=== PATIENT | female | born 1975 | race Caucasian/White ===

== ENCOUNTER 2018-11-20 14:50 | Observation (INO) | payer OTHER ==
[2018-11-20] MEDS ORDERED: SODIUM CHLORIDE 0.9% 1,000 ML IV STA ×2 (15:13)
--- NOTE | 2018-11-20 15:15 | ED ---
Neuro HPI - General Chief Complaint: Neuro Symptoms/Deficit Stated Complaint: elevated BP Time Seen by Provider: 11/20/18 15:11 Source: patient, EMS, RN notes reviewed, old records reviewed Mode of arrival: EMS Limitations: physical limitation - History of Present Illness Is the patient presenting with stroke symptoms?: Yes Last Known Well Date: 11/19/18 -: days(s) (1) Location: speech, dysarthria, left arm, left leg History of same: No Place: outdoors (Patient presents from [place]) Quality: weak, numb, tingling Improves With: none Worsens With: none On Anticoagulants: No Context: gradual onset Associated Symptoms: confusion Treatments Prior to Arrival: none - Related Data Home Medications: Home Medications Medication Instructions Recorded Confirmed Acetaminophen Tab [Tylenol Tab] 650 mg PO Q4H PRN 11/20/18 11/20/18 Calcium/Magnesium 1000/500mg 1 - 2 tab PO TID PRN 11/20/18 11/20/18 Chlorpheniramine Maleate 4 mg PO Q4H PRN 11/20/18 11/20/18 [Chlor-Trimeton] Docusate [Colace] 100 mg PO BID PRN 11/20/18 11/20/18 Estradiol [Estrace] 1 mg PO DAILY@00 11/20/18 11/20/18 FLUoxetine HCL [PROzac] 60 mg PO DAILY@59911/20/18 11/20/18 Folic Acid 1 mg PO DAILY@59911/20/18 11/20/18 Hyoscyamine Sulfate [Levsin-Sl] 0.125 mg SL QID PRN 11/20/18 11/20/18 Ibuprofen [Motrin] 600 mg PO Q6H PRN 11/20/18 11/20/18 Levothyroxine Sodium [Synthroid] 150 mcg PO DAILY@59911/20/18 11/20/18 Loperamide [Imodium] 4 mg PO QID PRN 11/20/18 11/20/18 Mirtazapine [Remeron] 30 mg PO HS 11/20/18 11/20/18 Multivitamins, Thera [Multivitamin 1 tab PO DAILY@0600 11/20/18 11/20/18 (formulary)] Ondansetron HCl [Zofran] 8 mg PO Q6H PRN 11/20/18 11/20/18 Ondansetron [Zofran] 4 mg IM Q6H PRN 11/20/18 11/20/18 Thiamine [Vitamin B-1] 100 mg PO DAILY@0600 11/20/18 11/20/18 Tigan 200mg 200 mg IM Q6H PRN 11/20/18 11/20/18 Trimethobenzamide HCl [Tigan] 300 mg PO Q6H PRN 11/20/18 11/20/18 busPIRone HCl [Buspar] 10 mg PO TID PRN 11/20/18 11/20/18 Allergies/Adverse Reactions: Allergies Allergy/AdvReac Type Severity Reaction Status Date / Time bee pollen Allergy Anaphylaxis Verified 11/20/18 15:24 Sulfa (Sulfonamide Allergy Rash/Hives Verified 11/20/18 15:24 Antibiotics) Review of Systems ROS Statement: Those systems with pertinent positive or pertinent negative responses have been documented in the HPI. ROS Other: All systems not noted in ROS Statement are negative. General Exam - General Exam Comments Initial Comments: NIH of 4 Limitations: physical limitation General appearance: alert, in no apparent distress Head exam: Present: atraumatic, normocephalic, normal inspection Eye exam: Present: normal appearance, PERRL, EOMI. Absent: scleral icterus, conjunctival injection, periorbital swelling ENT exam: Present: normal exam, mucous membranes moist Neck exam: Present: normal inspection. Absent: tenderness, meningismus, ly mphadenopathy Respiratory exam: Present: normal lung sounds bilaterally. Absent: respiratory distress, wheezes, rales, rhonchi, stridor Cardiovascular Exam: Present: regular rate, normal rhythm, normal heart sounds. Absent: systolic murmur, diastolic murmur, rubs, gallop, clicks GI/Abdominal exam: Present: soft, normal bowel sounds. Absent: distended, tenderness, guarding, rebound, rigid Extremities exam: Present: normal inspection, full ROM, normal capillary refill. Absent: tenderness, pedal edema, joint swelling, calf tenderness Back exam: Present: normal inspection Neurological exam: Present: alert, oriented X3, CN II-XII intact Psychiatric exam: Present: normal affect, normal mood Skin exam: Present: warm, dry, intact, normal color. Absent: rash Stroke MDM - Lab Data Result diagrams: 11/20/18 15:22 11/20/18 15:22 Lab Results 11/20/18 11/20/18 11/20/18 Range/Units 15: 15: 15:22 WBC 6.4 (3.8-10.6) k/uL RBC 4.19 (3.80-5.40) m/uL Hgb 11.9 (11.4-16.0) gm/dL Hct 35.7 (34.0-46.0) % MCV 85.2 (80.0-100.0) fL MCH 28.4 (25.0-35.0) pg MCHC 33.3 (31.0-37.0) g/dL RDW 13.5 (11.5-15.5) % Plt Count 255 (150-450) k/uL Neutrophils % 61 % Lymphocytes % 30 % Monocytes % 5 % Eosinophils % 1 % Basophils % 1 % Neutrophils # 3.9 (1.3-7.7) k/uL Lymphocytes # 1.9 (1.0-4.8) k/uL Monocytes # 0.3 (0-1.0) k/uL Eosinophils # 0.0 (0-0.7) k/uL Basophils # 0.0 (0-0.2) k/uL PT 9.5 (9.0-12.0) sec INR 0.9 (<1.2) APTT 25.7 (22.0-30.0) sec Sodium 140 (137-145) mmol/L Potassium 4.0 (3.5-5.1) mmol/L Chloride 108 H (98-107) mmol/L Carbon Dioxide 23 (22-30) mmol/L Anion Gap 9 mmol/L BUN 9 (7-17) mg/dL Creatinine 0.70 (0.52-1.04) mg/dL Est GFR (CKD-EPI)AfAm >90 (>60 ml/min/1.73 sqM) Est GFR (CKD-EPI)NonAf >90 (>60 ml/min/1.73 sqM) Glucose 87 (74-99) mg/dL Calcium 9.5 (8.4-10.2) mg/dL Total Bilirubin 0.2 (0.2-1.3) mg/dL AST 21 (14-36) U/L ALT 18 (9-52) U/L Alkaline Phosphatase 91 (38-126) U/L Troponin I (0.000-0.034) ng/mL Total Protein 6.9 (6.3-8.2) g/dL Albumin 4.3 (3.5-5.0) g/dL 11/20/18 Range/Units 15:22 WBC (3.8-10.6) k/uL RBC (3.80-5.40) m/uL Hgb (11.4-16.0) gm/dL Hct (34.0-46.0) % MCV (80.0-100.0) fL MCH (25.0-35.0) pg MCHC (31.0-37.0) g/dL RDW (11.5-15.5) % Plt Count (150-450) k/uL Neutrophils % % Lymphocytes % % Monocytes % % Eosinophils % % Basophils % % Neutrophils # (1.3-7.7) k/uL Lymphocytes # (1.0-4.8) k/uL Monocytes # (0-1.0) k/uL Eosinophils # (0-0.7) k/uL Basophils # (0-0.2) k/uL PT (9.0-12.0) sec INR (<1.2) APTT (22.0-30.0) sec Sodium (137-145) mmol/L Potassium (3.5-5.1) mmol/L Chloride (98-107) mmol/L Carbon Dioxide (22-30) mmol/L Anion Gap mmol/L BUN (7-17) mg/dL Creatinine (0.52-1.04) mg/dL Est GFR (CKD-EPI)AfAm (>60 ml/min/1.73 sqM) Est GFR (CKD-EPI)NonAf (>60 ml/min/1.73 sqM) Glucose (74-99) mg/dL Calcium (8.4-10.2) mg/dL Total Bilirubin (0.2-1.3) mg/dL AST (14-36) U/L ALT (9-52) U/L Alkaline Phosphatase (38-126) U/L Troponin I <0.012 (0.000-0.034) ng/mL Total Protein (6.3-8.2) g/dL Albumin (3.5-5.0) g/dL - NIH Stroke Scale 1a. Level of Consciousness: (0) alert 1b. LOC Questions: (1) answers 1 question correctly 1c. LOC Commands: (0) performs tasks correctly 2. Best Gaze: (0) normal 5a. Motor Arm Left: (0) no drift 5b. Motor Arm Right: (1) drift 6a. Motor Leg Left: (0) no drift 6b. Motor Leg Right: (1) drift 7. Limb Ataxia: (1) present 1 limb 8. Sensory: (0) normal 9. Best Language: (1) mild/moderate aphasia 10. Dysarthria: (1) mild/moderate dysarthria 11. Extinction/Inattention: (0) no abnormality - Thrombolytic Inclusion/Exclusion Thrombolytic Exclusion Criteria: Symptom Onset > 3 Hours - Medical Decision Making 43 female the ER for evaluation patient resents today for evaluation of neurological complaints. Left-sided weakness expressive aphasia. Patient has CVA not TPA candidate secondary to onset of symptoms greater than one day will admit for neurology evaluation - Radiology Data Radiology results: report reviewed (CT brain negative for acute disease), image reviewed Past Medical History Additional Past Medical History / Comment(s): kidney stones History of Any Multi-Drug Resistant Organisms: None Reported Past Surgical History: Appendectomy, Cholecystectomy, Hysterectomy Additional Past Surgical History / Comment(s): lithotripsy, uretal stents Past Psychological History: ADD/ADHD, Anxiety, Depression, PTSD Smoking Status: Current every day smoker Past Alcohol Use History: Abuse Past Drug Use History: Cocaine, Marijuana Course Vital Signs 11/20/18 15:06 Temperature 98.8 F Pulse Rate 80 Respiratory 18 Rate Blood Pressure 125/81 O2 Sat by Pulse 100 Oximetry - Reevaluation(s) Reevaluation #1: 11/20/18 17:05 Medical records reviewed Reevaluation #2: 11/20/18 17:05 17 female secondary to onset of symptoms greater than one day Reevaluation #3: 11/20/18 17:05 Still with current symptoms Disposition Clinical Impression: Transient cerebral ischemia, Cerebrovascular accident Disposition: ADMITTED IP TO THIS [facility] Condition: Fair Is patient prescribed a controlled substance at d/c from ED?: No Referrals: Nonstaff,Physician [Primary Care Provider] - 1-2 days
[2018-11-20 16:10] LABS: Basophils % (A) 1 %; Eosinophils % (A) 1 %; HCT 35.7 % (34.0-46.0); HGB 11.9 gm/dL (11.4-16.0); Lymphocytes # (A) 1.9 k/uL (1.0-4.8); Lymphocytes % (A) 30 %; MCH 28.4 pg (25.0-35.0); MCHC 33.3 g/dL (31.0-37.0); MCV 85.2 fL (80.0-100.0); Mean Platelet Volume 7.9; Monocytes # (A) 0.3 k/uL (0-1.0); Monocytes % (A) 5 %; Neutrophils # (A) 3.9 k/uL (1.3-7.7); Neutrophils % (A) 61 %; Platelet Count 255 k/uL (150-450); RBC 4.19 m/uL (3.80-5.40); RDW 13.5 % (11.5-15.5); WBC 6.4 k/uL (3.8-10.6)
[2018-11-20 16:14] LABS: ALT 18 U/L (9-52); AST 21 U/L (14-36); African American GFR (CKD) >90 (>60 ml/min/1.73 sqM); Albumin 4.3 g/dL (3.5-5.0); Alkaline Phosphatase 91 U/L (38-126); Anion Gap 9 mmol/L; Blood Urea Nitrogen 9 mg/dL (7-17); Calcium 9.5 mg/dL (8.4-10.2); Carbon Dioxide 23 mmol/L (22-30); Chloride 108 mmol/L (98-107); Glucose 87 mg/dL (74-99); Sodium 140 mmol/L (137-145); Total Bilirubin 0.2 mg/dL (0.2-1.3); Total Protein 6.9 g/dL (6.3-8.2)
[2018-11-20 16:15] LABS: INR 0.9 (<1.2); Partial Thromboplastin Time 25.7 sec (22.0-30.0); Prothrombin Time 9.5 sec (9.0-12.0)
--- NOTE | 2018-11-20 16:57 | CT ---
EXAMINATION TYPE: CT brain wo con for TPA DATE OF EXAM: 11/20/2018 COMPARISON: None. HISTORY: headache CT DLP: 1032 mGycm Automated exposure control for dose reduction was used. FINDINGS: There is no acute intracranial hemorrhage, mass effect, or midline shift identified. The ventricles and sulci are within normal limits in size. [place]-white matter differentiation is maintained. The glob es are intact and the visualized sinuses are clear. IMPRESSION: No acute intracranial hemorrhage or midline shift is seen.
[2018-11-20] MEDS ORDERED: IBUPROFEN 600 MG TAB PO STA (17:04)
[2018-11-20] MEDS ORDERED: ASPIRIN 325 MG TAB PO STA (17:06)
--- NOTE | 2018-11-20 17:14 | CT ---
EXAMINATION TYPE: CT angio head neck DATE OF EXAM: 11/20/2018 HISTORY: headache, tremors. Code stroke. COMPARISON: NONE CT DLP: 296 mGycm. Automated Exposure Control for Dose Reduction was Utilized. TECHNIQUE: CTA scan of the head and neck are performed with IV Contrast, patient injected with 50 mL of Isovue 370, axial images are obtained, coronal and sagittal reformatted images are reviewed. Thre e-D reconstructed images are created on an independent workstation and reviewed. FINDINGS: Carotid/Vascular Structures: There is normal three-vessel origin from aortic arch. No significant celeste que or stenosis is seen. Right common carotid artery shows normal origin from right brachiocephalic a rtery. There is no significant plaque or stenosis in right common or internal carotid artery includin g a level right carotid bulb. There is patent right external carotid artery without significant plaqu e or stenosis. There is no significant plaque or stenosis in left common or internal carotid artery. S/P left emergency department nurse al carotid artery without significant plaque or stenosis. There is dominant left vertebral artery. Vertebral arteries are patent to basilar junction. There is hypoplastic left P1 segment filling of P2 segment due to patent posterior communicating artery. There is hypoplastic right posterior communicating artery. No aneurysm in the posterior circulation is see n. Images of the anterior circulation show patent anterior communicating artery. There is no significant focal stenosis or aneurysmal change. Other: No additional significant abnormality is seen. IMPRESSION: No significant stenosis in common or internal carotid arteries bilaterally. No aneurysmal change at level of [place].
[2018-11-20] MEDS: SODIUM CHLORIDE 0.9% 1,000 ML IV SCH (17:21)
[2018-11-20 17:52] LABS: Appearance,Urine Clear (Clear); Bilirubin,Urine Negative (Negative); Blood,Urine Negative (Negative); Color,Urine Yellow; Glucose,Urine (UA) Negative (Negative); Ketones,Urine 1+ (Negative); Leukocyte Esterase,Urine Negative (Negative); Nitrite,Urine Negative (Negative); Protein,Urine Negative (Negative); Urobilinogen,Urine <2.0 mg/dL (<2.0)
[2018-11-20 18:03] LABS: Amphetamine Screen,Urine Not Detected (NotDetected); Barbiturate Screen,Urine Not Detected (NotDetected); Benzodiazepines Screen,Urine Detected (NotDetected); Cocaine Screen,Urine Not Detected (NotDetected); Methadone Screen, Urine Not Detected (NotDetected); Opiate Screen,Urine Not Detected (NotDetected); Oxycodone Screen, Urine Not Detected (NotDetected); Phencyclidine Screen,Urine Not Detected (NotDetected); Tricyclic Antidepressant,Urine Not Detected (NotDetected); Urn Cannabinoid Scrn Detected (NotDetected)
[2018-11-20] MEDS ORDERED: LORazepam 2 MG/ML INJ IV STA (18:13)
[2018-11-20] MEDS ORDERED: HYOSCYAMINE SULFATE 0.125 MG TAB PO PRN (18:16)
[2018-11-20] MEDS ORDERED: DOCUSATE 100 MG CAP PO PRN (18:16)
[2018-11-20] MEDS ORDERED: ONDANSETRON 4 MG/2 ML VIAL IM PRN (18:16)
[2018-11-20] MEDS ORDERED: diphenhydrAMINE 25 MG CAP PO PRN (18:16)
[2018-11-20] MEDS ORDERED: LOPERAMIDE 2 MG CAP PO PRN (18:16)
[2018-11-20] MEDS ORDERED: TRIMETHOBENZAMIDE 100 MG/ML 2 ML VIAL IM PRN (18:16)
--- NOTE | 2018-11-20 19:24 | XR ---
EXAMINATION TYPE: XR chest 2V DATE OF EXAM: 11/20/2018 COMPARISON: NONE HISTORY: Confusion and altered mental status. TECHNIQUE: Frontal and lateral views of the chest are obtained. FINDINGS: Overlying EKG leads are present. There is no focal air space opacity, pleural effusion, or pneumothorax seen. The cardiac silhouette size is within normal limits. The osseous structures are intact. IMPRESSION: No acute cardiopulmonary process.
--- NOTE | 2018-11-20 19:26 | HP ---
HISTORY AND PHYSICAL CHIEF COMPLAINT: Possible CVA with expressive aphasia and weakness on the left side. HISTORY OF PRESENT ILLNESS: This is the first known admission for this 46-year-old white female transferred to [place] where she is being treated for alcoholism. She is difficult to get a history from. She is very agitated. She smells as though she has been drinking alcohol. She has consistently shown that she has left-sided weakness while in the ER. She does not have a history of hypertension or diabetes. She has a history of 1 , 1 delivery. REVIEW OF SYSTEMS: She denies diplopia, change in vision hearing, amaurosis fugax, chest pain, shortness of breath, cough, hemoptysis, history of heart disease, palpitations, angina, murmurs, rheumatic fever, orthopnea, PND, abdominal pain, nausea, vomiting, hematemesis, melena, hematochezia, colitis, diverticulosis, diverticulitis, hemorrhoids, jaundice, hepatitis, cirrhosis, renal failure, hematuria, dysuria, frequency, incontinence, or diabetes. Past medical history, family history and personal and social histories reveal that she is ALLERGIC to SULFA. MEDICATIONS INCLUDE: Tylenol, buspirone 10 mg t.i.d., calcium and magnesium combination 1000/500 mg 3 times a day, estradiol 1 mg once a day, ibuprofen 600 mg q.i.d., multivitamin, Zofran 8 mg q.6 p.r.n., Tigan 300 mg q.6 p.r.n., chlorpheniramine 4 mg once a day, Colace, Prozac 20 mg once a day, Folic acid 1 mg once a day, hyoscyamine sulfate 0.125 mg sublingual q.i.d., levothyroxine 0.15 mg once a day, Imodium 2 q.i.d. p.r.n., Remeron 15 mg q.h.s., thiamin 100 mg once a day, and Tigan 200 mg q.i.d. p.r.n. She has had surgically, appendectomy, renal calculi, cholecystectomy and hysterectomy. She smokes about a quarter pack cigarettes a day. PHYSICAL EXAM: Blood pressure is 127/84 with a pulse of 83, respirations of 36 and she is afebrile. In general, she appeared to be slender and quite agitated. Skin color is normal. Skin is dry. Head, ears, eyes, nose, mouth, and throat were normal. She had a faint right carotid bruit, none heard on the left. Chest is clear to auscultation and percussion and cardiac exam demonstrates sinus rhythm and no murmurs or extra sounds. The abdomen is flat, soft, nontender without visceromegaly or masses. Bowel sounds are present. Extremities are normal and neurologically she is quite agitated, but she had no focal lateralizing signs or symptoms. Neurologic exam: She had slight weakness in the left arm and left leg and speech seemed to be at times impaired. Toes downgoing. ADMISSION DIAGNOSES: She is admitted to the hospital with diagnoses: 1. Possible right-sided cerebrovascular accident or transient ischemic attack. 2. Right carotid bruit. 3. Alcoholism. PLAN: 1. Bed rest. 2. IV fluids. 3. Frequent monitoring of her neurologic status and vital signs. 4. Watch for DTs. 5. Neurology consult. 6. Carotid duplex imaging. 7. EEG. MMDYLNO / IJN: [id number] /
--- NOTE | 2018-11-20 19:56 | P.CNNES ---
History of Present Illness Consult date: 11/20/18 Requesting physician: Jerry Sykes Reason for Consult: CVA Chief complaint: "Bad MOTT and anxiety" History of Present Illness: This is a 43 RH female transferred from [place] where she was undergoing treatment for alcoholism. Initially, she presented to the ER c/o MOTT and anxiety. While in the ER, she was noted to have left-sided weakness, though it has been ongoing for at least a day, so she was out of the window for thrombolytics. She was also not a thrombectomy candidate due to no LVO. Currently, patient's main complaint is shakiness and anxiety. She denies seizure. Primary service notes that she smelled of alcohol, though she denies alcohol consumption recently. She denies other neuro c/o such as diplopia, facial numbness or droop, vertigo, dysarthria, dysphagia, aphasia, other focal numbness/weakness not mentioned above, bowel/bladder incontinence or ataxia. Review of Systems Unable to obtain from patient due to refusal to answer many questions. Past Medical History Additional Past Medical History / Comment(s): kidney stones History of Any Multi-Drug Resistant Organisms: None Reported Past Surgical History: Appendectomy, Cholecystectomy, Hysterectomy Additional Past Surgical History / Comment(s): lithotripsy, uretal stents Past Psychological History: ADD/ADHD, Anxiety, Depression, PTSD Smoking Status: Current every day smoker Past Alcohol Use History: Abuse Past Drug Use History: Cocaine, Marijuana Medications and Allergies Home Medications Medication Instructions Recorded Confirmed Type Acetaminophen Tab [Tylenol Tab] 650 mg PO Q4H PRN 11/20/18 11/20/18 History Calcium/Magnesium 1000/500mg 1 - 2 tab PO TID PRN 11/20/18 11/20/18 History Chlorpheniramine Maleate 4 mg PO Q4H PRN 11/20/18 11/20/18 History [Chlor-Trimeton] Docusate [Colace] 100 mg PO BID PRN 11/20/18 11/20/18 History Estradiol [Estrace] 1 mg PO DAILY@59911/20/18 11/20/18 History FLUoxetine HCL [PROzac] 60 mg PO DAILY@59911/20/18 11/20/18 History Folic Acid 1 mg PO DAILY@59911/20/18 11/20/18 History Hyoscyamine Sulfate [Levsin-Sl] 0.125 mg SL QID PRN 11/20/18 11/20/18 History Ibuprofen [Motrin] 600 mg PO Q6H PRN 11/20/18 11/20/18 History Levothyroxine Sodium [Synthroid] 150 mcg PO DAILY@0600 11/20/18 11/20/18 History Loperamide [Imodium] 4 mg PO QID PRN 11/20/18 11/20/18 History Mirtazapine [Remeron] 30 mg PO HS 11/20/18 11/20/18 History Multivitamins, Thera [Multivitamin 1 tab PO DAILY@0611/20/18 11/20/18 History (formulary)] Ondansetron HCl [Zofran] 8 mg PO Q6H PRN 11/20/18 11/20/18 History Ondansetron [Zofran] 4 mg IM Q6H PRN 11/20/18 11/20/18 History Thiamine [Vitamin B-1] 100 mg PO DAILY@0611/20/18 11/20/18 History Tigan 200mg 200 mg IM Q6H PRN 11/20/18 11/20/18 History Trimethobenzamide HCl [Tigan] 300 mg PO Q6H PRN 11/20/18 11/20/18 History busPIRone HCl [Buspar] 10 mg PO TID PRN 11/20/18 11/20/18 History Allergies Allergy/AdvReac Type Severity Reaction Status Date / Time bee pollen Allergy Anaphylaxis Verified 11/20/18 15:24 Sulfa (Sulfonamide Allergy Rash/Hives Verified 11/20/18 15:24 Antibiotics) Physical Examination - Vital Signs Vital Signs: Vital Signs Temp Pulse Resp BP Pulse Ox 11/20/18 18:21 74 16 132/85 11/20/18 17:26 77 16 129/78 100 11/20/18 15:06 98.8 F 80 18 125/81 100 Intake and Output 11/20/18 11/20/18 11/20/18 06:59 14:59 22:59 Other: Weight 65.771 kg Gen NAD Pleasant and cooperative HEENT NCAT Sclera without icterus O/P clear Neck Supple No carotid bruit Cor RRR no m/r/g Lungs CTAB Abd Soft NTND +BS Ext Warm to touch No edema Neuro MS A+Ox4 Normal fluency Able to follow all commands CN PERRL VFF no APD EOMI no nystagmus or LI No facial asymmetry Masseter's symmetric Hearing intact to normal voice bilaterally Speech not dysarthric Equal elevation of palate Tongue midline Sym shrug and SCM bilaterally Motor Normal bulk/tone LUE updrift No LLE drift Diffuse appendicular postural and action tremor No asterixis or myoclonus Strength 5/5 right 4+ to 5/5 with giveway weakness and magnetic hand sign Sens Intact to LT x4 No neglect or extinction Coord No dysmetria on FTN bilaterally DTRs 2+/4 sym throughout Toes downgoing bilaterally No clonus at achilles Gait Deferred NIHSS 1 Results - Laboratory Findings CBC and BMP: 11/20/18 15:22 11/20/18 15:22 Abnormal Lab Findings: Abnormal Labs 11/20/18 11/20/18 15:22 17:35 Chloride 108 H Ur Specific [place] 1.050 H Urine Ketones 1+ H U Benzodiazepines Scrn Detected H U Marijuana (THC) Screen Detected H - Diagnostic Findings Additional findings: CT Head wo cont 11/20/18. Nil acute. CTA Head/Neck 11/20/18. No BICA stenosis or LVO. No intracranial LVO, stenosis or aneurysm. Hypoplastic but patent left P1 with filling of P2 from pcomm. Hypoplastic right pcomm. I have reviewed neuroimages myself. Assessment and Plan Assessment: Left-sided weakness, inconsistent and functional exam. Doubt CVA. Tremors/anxiety with high index of suspicion for alcohol withdrawal. Plan: -CT Head and CTA Head/Neck reviewed with patient -CIWA -Thiamine -Seizure precautions -EEG if seizure, but so far she has not had any -PT/OT for left-sided weakness -d/w patient in detail. All questions answered. Thank you for this consultation. Please call with ?. Time with Patient: Greater than 30 (Time spent in direct patient care, greater than 50% of which was spent in [id number] counseling and coordination of care: 70 minutes.)
[2018-11-20] MEDS ORDERED: MIRTAZAPINE 15 MG TAB PO SCH (21:00)
[2018-11-20] MEDS ORDERED: LORazepam 2 MG/ML INJ IV PRN (22:16)
[2018-11-20] MEDS: LORazepam 2 MG/ML INJ IV PRN (22:29)
[2018-11-20] MEDS: ACETAMINOPHEN TAB 325 MG TAB PO PRN (22:29)
[2018-11-20] MEDS ORDERED: MELATONIN 5 MG TABLET PO SCH (22:30)
[2018-11-21 04:31] LABS: Cholesterol 186 mg/dL (<200); HDL Cholesterol 64 mg/dL (40-60); LDL Cholesterol,Calculated 92 mg/dL (0-99); Triglycerides 151 mg/dL (<150)
[2018-11-21] MEDS ORDERED: THIAMINE 100 MG TAB PO SCH (06:00)
[2018-11-21] MEDS ORDERED: LEVOTHYROXINE 75 MCG TAB PO SCH (06:00)
[2018-11-21] MEDS ORDERED: FLUoxetine HCL 20 MG CAP PO SCH (06:00)
[2018-11-21] MEDS ORDERED: FOLIC ACID 1 MG TAB PO SCH (06:00)
[2018-11-21] MEDS: SODIUM CHLORIDE 0.9% 1,000 ML IV SCH (08:30)
[2018-11-21] MEDS: ACETAMINOPHEN TAB 325 MG TAB PO PRN ×2 (08:30→13:26)
[2018-11-21] MEDS: LORazepam 2 MG/ML INJ IV PRN ×4 (08:36→16:31)
[2018-11-21] MEDS ORDERED: ASPIRIN 325 MG TAB PO SCH (12:00)
[2018-11-21] MEDS ORDERED: LORazepam 1 MG TAB PO PRN (12:42)
[2018-11-21] MEDS ORDERED: NICOTINE 21MG/24HR PATCH TRANSDERM SCH (13:00)
--- NOTE | 2018-11-21 15:04 | P.PN ---
Subjective Progress Note Date: 11/21/18 Principal diagnosis: Left-sided functional weakness Tremors/anxiety No acute events O/N. Tremors calming down. MRI Brain ordered by primary team. No new neuro c/o. Has numerous questions for me about Vyvanse and difference between alprazolam and lorazepam. Objective - Vital Signs Vital signs: Vital Signs Temp 98.2 F 11/21/18 12:00 Pulse 82 11/21/18 12:00 Resp 20 11/21/18 12:00 BP 133/86 11/21/18 12:00 Pulse Ox 98 11/21/18 12:00 Intake & Output 11/20/18 11/21/18 11/21/18 18:59 06:59 18:59 Intake Total 240 100 880 Balance 240 100 880 Weight 65.771 kg 64.7 kg Intake: Oral 240 100 880 Other: Voiding Method Toilet Toilet # Voids 1 1 1 - Exam Gen NAD Pleasant and cooperative Neuro MS A+Ox4 Normal fluency Able to follow all commands CN PERRL VFF no APD EOMI no nystagmus or LI No facial asymmetry [place]'s symmetric Hearing intact to normal voice bilaterally Speech not dysarthric Equal elevation of palate Tongue midline Sym shrug and SCM bilaterally Motor Normal bulk/tone LUE updrift No LLE drift Improved postural and action tremor in BUE No asterixis or myoclonus Strength 5/5 right 4+ to 5/5 with giveway weakness and magnetic hand sign Sens Intact to LT x4 No neglect or extinction Coord No dysmetria on FTN bilaterally DTRs 2+/4 sym throughout Toes downgoing bilaterally No clonus at achilles Gait Narrow-based and stable NIHSS 0 - Labs CBC & Chem 7: 11/20/18 15:22 11/20/18 15:22 Labs: Abnormal Lab Results - Last 24 Hours (Table) 11/20/18 11/20/18 11/20/18 Range/Units 06:00 15:22 17:35 Chloride 108 H (98-107) mmol/L Triglycerides 151 H (<150) mg/dL HDL Cholesterol 64 H (40-60) mg/dL Ur Specific [place] 1.050 H (1.001-1.035) Urine Ketones 1+ H (Negative) U Benzodiazepines Scrn Detected H (NotDetected) U Marijuana (THC) Screen Detected H (NotDetected) - Imaging and Cardiology MRI - head: image reviewed (Negative diffusion. No ICH. No acute intracranial abnormalities.) Assessment and Plan Assessment: Left-sided weakness, inconsistent and functional exam. MRI also did not show CVA. Tremors/anxiety. Plan: -MRI Brain results d/w patient -CT Head and CTA Head/Neck unrevealing -CIWA -Thiamine -PT/OT for left-sided functional weakness -I cannot answer her questions about psychotropics that are managed by psychiatry. Defer to primary team/psych -d/w patient in detail. All questions answered.' -No further inpatient neuro recs at this time. Will revisit prn. Thank you again for this consultation. Please call with ?. Time with Patient: Less than 30 (Time spent in direct patient care, greater than 50% of which was spent in [id number] counseling and coordination of care: 25 minutes)
[2018-11-21 15:33] VITALS: BP 121/75; PULSE 97; RESP 16; TEMP 98.3
--- NOTE | 2018-11-21 15:38 | MR ---
EXAMINATION TYPE: MR brain wo/w con DATE OF EXAM: 11/21/2018 COMPARISON: CT brain 11/20/2018 HISTORY: Stroke symptoms, alvarez TECHNIQUE: Multiplanar, multisequence images of the brain and brainstem is performed without and with IV contras t, utilizing 6.5 mL intravenous Gadavist . FINDINGS: Diffusion weighted images demonstrate no evidence of a recent infarct or other diffusion ab normality. There is no extra-axial fluid collection or significant white matter signal abnormality. The ventricular system and cisternal spaces are normal in size and appearance. The brain volume is age appropriate. Midline structures demonstrate normal morphology. The craniocervical junction appears within normal limits. Post contrast images demonstrate no abnormal enhancement. The dural venous sinuses appear pa tent. The visualized sinuses are clear and the globes are intact. IMPRESSION: Normal brain MRI
--- NOTE | 2018-11-21 16:59 | PN ---
PROGRESS NOTE DATE OF SERVICE: 11/21/2018 CHIEF COMPLAINT: Possible CVA. HISTORY OF PRESENT ILLNESS: This lady is still having some tremors and is extremely agitated. Her blood alcohol was nondetectable. She is not having any localizing or lateralizing signs or symptoms at this time. PHYSICAL EXAMINATION: Head ears, eyes, nose, mouth and throat are normal. Chest is clear. Cardiac exam is normal. She is still agitated and still has bilateral upper extremity tremors. IMPRESSION: 1. ? Transient ischemic attack or cerebrovascular. 2. Alcoholism. 3. Extreme anxiety. 4. Tremors. PLAN: She will be switched to oral Ativan and we continue to await the balance of her studies. MMODL / IJN: [id number] /
--- NOTE | 2018-11-21 23:51 | DS ---
DISCHARGE SUMMARY CHIEF COMPLAINT: Possible CVA. HISTORY OF PRESENT ILLNESS AND PHYSICAL EXAMINATION: Details of this lady's history and physical can be found in the initial workup. LABORATORY STUDIES: While she was in the hospital she had laboratory studies, details of which can be found in the laboratory section of her chart. COURSE IN THE HOSPITAL: After admission she was placed on bedrest, started on intravenous fluids and frequent monitoring of her neurologic status and vital signs. She remained extremely agitated and was placed on CIWA protocol. It was not clear that this represented DTs or extreme anxiety. Her blood alcohol was zero. She was seen by Neurology and neurologic studies were negative. Neurology felt she could be released. She will be returned to [facility] on her usual medications and activities. FINAL DIAGNOSES: 1. Possible transient ischemic attack. 2. Acute anxiety neurosis. 3. Chronic alcoholism. 4. Possible delirium tremens. OPERATIONS: None. CONSULTATION: Neurology. She is improved. MMODL / DOMIN: [id number] /
== END 2018-11-21 17:43 | disposition home or self-care (01) ==
LOC: EC 14:50 → INTOOBSV 17:06 → 3SCARD 17:06 → UNDOADMIN 17:06 → 3SCARD 18:38 → UNDODISIN 11-21 17:43
PROVIDERS: ADMIT Family Medicine; ATTEND Family Medicine
DX: R47.1 Dysarthria and anarthria (principal); F41.1 Generalized anxiety disorder; F10.20 Alcohol dependence, uncomplicated; R25.1 Tremor, unspecified; R47.01 Aphasia; R53.1 Weakness; R45.1 Restlessness and agitation; R51 Headache; R41.0 Disorientation, unspecified; R20.2 Paresthesia of skin; F43.10 Post-traumatic stress disorder, unspecified; F90.9 Attention-deficit hyperactivity disorder, unspecified type; F32.9 Major depressive disorder, single episode, unspecified; R03.0 Elevated blood-pressure reading, without diagnosis of hypertension; F17.210 Nicotine dependence, cigarettes, uncomplicated; Z79.899 Other long term (current) drug therapy; Z79.890 Hormone replacement therapy; Z88.2 Allergy status to sulfonamides; Z91.030 Bee allergy status; Z87.442 Personal history of urinary calculi; Z90.710 Acquired absence of both cervix and uterus; Z90.49 Acquired absence of other specified parts of digestive tract
CPT/HCPCS: 96376 ×2; 96361; 96374; 99285; 36415; 97535; 97167; 92523; 80061; 80053; 84484; 85025; 85610; 85730; 81003; 80306; 71046; 70496; 70450; 70498; 70553; G0378 ×2; G0480; S4990; J2060 ×2; A9585; Q9967; 80320